=== PATIENT | male | born 1995 | race African-American/Black ===

== ENCOUNTER 2025-06-29 19:35 | Outpatient (REF) | payer SELFPAY ==
[2025-06-30 19:29] LABS: Hepatitis C Ab w Rflx HCV PCR Negative (Negative)
[2025-06-30 19:31] LABS: HIV-1/2 Ag & Ab Screen Negative (Negative)
[2025-07-01 11:47] LABS: Chlamydia Result Negative (Negative); GC Result Negative (Negative)
[2025-07-01 12:12] LABS: Syphilis Serology (RPR) Negative (Negative)
== END 2025-06-29 19:36 | disposition home or self-care (01) ==
LOC: LBN 19:35
PROVIDERS: Visit Provider Nurse Practitioner Family
DX: Z11.3 Encounter for screening for infections with a predominantly sexual mode of transmission (principal)
CPT/HCPCS: 86803; 87389; 87491; 87591; 86592